=== PATIENT | female | born 1995 | race Caucasian/White ===

== ENCOUNTER 2017-07-25 15:24 | Emergency (ER) | payer OTHER ==
[2017-07-25 15:56] VITALS: BP 111/70
--- NOTE | 2017-07-25 16:45 | XRAY Report ---
EXAM: LEFT ANKLE RADIOGRAPHY EXAM DATE: 07/25/2017 04:14 PM. CLINICAL HISTORY: Injury. Medial pain after object struck ankle. COMPARISON: None. TECHNIQUE: 3 views. FINDINGS: Bones: Normal. No fractures or bone lesions. Joints: Normal. No effusion. No subluxations. The ankle mortise is normally aligned. Soft Tissues: Normal. No soft tissue swelling. IMPRESSION: Normal ankle radiography. [facility] Referring Provider Line: [phone] SITE ID: [id number]
--- NOTE | 2017-07-25 17:47 | ED Physician Documentation ---
PD HPI LOWER EXT INJURY - Stated complaint Stated Complaint: L ANKLE INJ - Chief complaint Chief Complaint: Ext Problem - History obtained from History obtained from: Patient - History of Present Illness PD HPI LOW EXT INJURY LOCATION: Left, Ankle, Foot Type of injury: Blunt / blow (she had object strike her foot/ankle with pain locally.) Where injury occurred: Work Timing - onset: Today Timing - duration: Hours Timing - details: Abrupt onset, Still present Worsened by: Moving, Palpating Associated symptoms: Swelling. No: Weakness, Numbness Similar symptoms before: Has not had sx before Recently seen: Not recently seen [place] but referred to ED.) Review of Systems Constitutional: denies: Fever, Chills Nose: denies: Rhinorrhea / runny nose Throat: denies: Sore throat Respiratory: denies: Cough GI: denies: Vomiting Skin: denies: Abrasion (s), Laceration (s) Neurologic: denies: Focal weakness, Numbness PD PAST MEDICAL HISTORY - Past Medical History Past Medical History: Yes Endocrine/Autoimmune: HyPERthyroidism - Past Surgical History Past Surgical History: No - Allergies Allergies/Adverse Reactions: Allergies Allergy/AdvReac Type Severity Reaction Status Date / Time No Known Drug Allergies Allergy Verified 07/25/17 15:56 - Social History Does the pt smoke?: No Smoking Status: Never smoker Does the pt drink ETOH?: Yes Does the pt have substance abuse?: No PD ED PE NORMAL - Vitals Vital signs reviewed: Yes - General General: Alert and oriented X 3, No acute distress, Well developed/nourished - Derm Derm: Normal color, Warm and dry - Extremities Extremities: Other (slightly limping gait on left. Tender proximal foot, dorsally and to medial ankle, without effusion. No obvious deformity. ) - Neuro Neuro: No motor deficit, No sensory deficit Results - Vitals Vitals: Oxygen O2 Source Room air - Rads (name of study) ankle Radiology: Prelim report reviewed (no fracture), EMP read contemporaneously PD MEDICAL DECISION MAKING - ED course Complexity details: reviewed results, considered differential, d/w patient Departure - Departure Disposition: 01 Home, Self Care Clinical Impression: Ankle contusion Qualifiers: Encounter type: initial encounter Laterality: left Qualified Code(s): S90.02XA - Contusion of left ankle, initial encounter Condition: Stable Record reviewed to determine appropriate education?: Yes Instructions: ED Contusion Foot Follow-Up: WILLY ESPARZA [Primary Care Provider] - Comments: Tylenol or ibuprofen if needed for pains. Colton wrap for swelling. Ice and elevate the ankle often if needed for swelling. No fractures are seen on the x- ray. He will be sore to be on it but no harm done so activity as desired. I wrote to a work note with no restrictions at your request and that seems reasonable. Forms: Activity restrictions Discharge Date/Time: 07/25/17 18:14
== END 2017-07-25 18:14 | disposition home or self-care (01) ==
LOC: ED 15:24
DX: S90.02XA Contusion of left ankle, initial encounter (principal); W22.8XXA Striking against or struck by other objects, initial encounter; Y99.0 Civilian activity done for income or pay; E05.90 Thyrotoxicosis, unspecified without thyrotoxic crisis or storm
CPT/HCPCS: 99283

== ENCOUNTER 2017-11-09 03:34 | Emergency (ER) | payer OTHER ==
[2017-11-09 03:42] VITALS: BP 135/76
[2017-11-09] MEDS ORDERED: MAG HYDROX/AL HYDROX/SIMETH 30 ML UDC PO STA (03:56)
[2017-11-09] MEDS ORDERED: LIDOCAINE VISCOUS 2% 15 ML UDC MM STA (03:56)
[2017-11-09] MEDS ORDERED: ONDANSETRON ODT 4 MG TABLET TL STA (03:56)
[2017-11-09 03:59] LABS: BILIRUBIN,URINE NEGATIVE (NEGATIVE); GLUCOSE, URINE (UA) NEGATIVE (NEGATIVE); KETONES,URINE (UA) NEGATIVE (NEGATIVE); LEUKOCYTE ESTERASE, URINE NEGATIVE (NEGATIVE); NITRITE,URINE NEGATIVE (NEGATIVE); OCCULT BLOOD,URINE NEGATIVE (NEGATIVE); PROTEIN,URINE NEGATIVE (NEGATIVE); UROBILINOGEN,URINE 0.2 (NORMAL) E.U./dL (NORMAL)
[2017-11-09 04:02] LABS: CLARITY,URINE CLEAR (CLEAR); HCG UR QUAL NEGATIVE
--- NOTE | 2017-11-09 04:10 | ED Physician Documentation ---
PD HPI NVD - Stated complaint Stated Complaint: ABDOMINAL PAIN; THROAT BURNING - Chief complaint Chief Complaint: Abd Pain - History obtained from History obtained from: Patient, Family - History of Present Illness Timing - onset: Today Timing - details: Abrupt onset, Still present Associated symptoms: No: Abdominal pain Contributing factors: Bad food, Alcohol use Similar symptoms before: Work up / diagnostics Recently seen: Not recently seen - Additonal information Additional information: Patient is a 21 year old female with a history of GERD who is presenting to the emergency department for epigastric pain. patient states that when she went to bed she had epigstric pain and felt like she had to burp. she states when she woke up the pain persisted and felt like her throat was burning and closing. patient got worried so she had her boyfriend take her in for evaluation. Upon initial evaluation in the emergency department patient was well appearing and in no acute distress. Review of Systems Ten Systems: 10 systems reviewed and negative GI: reports: Abdominal Pain, Nausea, Vomiting PD PAST MEDICAL HISTORY - Past Medical History Past Medical History: Yes Endocrine/Autoimmune: HyPERthyroidism GI: GERD - Past Surgical History Past Surgical History: No - Present Medications Home Medications: Ambulatory Orders Medication Instructions Recorded Confirmed Levothyroxine Sodium [Synthroid] 1 tab PO DAILY 11/09/17 11/09/17 Lidocaine Viscous 2% [Xylocaine 5 ml MM Q4H #1 bottle 11/09/17 Viscous 2%] Ondansetron Odt [Zofran] 4 mg TL Q6H PRN #14 tablet 11/09/17 - Allergies Allergies/Adverse Reactions: Allergies Allergy/AdvReac Type Severity Reaction Status Date / Time No Known Drug Allergies Allergy Verified 11/09/17 03:42 - Social History Does the pt smoke?: No Smoking Status: Never smoker Does the pt drink ETOH?: Yes Does the pt have substance abuse?: No - Immunizations Immunizations are current?: Yes - POLST Patient has POLST: No PD ED PE NORMAL - Vitals Vital signs reviewed: Yes - General General: Alert and oriented X 3, No acute distress - HEENT HEENT: Atraumatic, PERRL - Cardiac Cardiac: RRR - Respiratory Respiratory: No respiratory distress - Abdomen Abdomen: Non tender, Non distended - Derm Derm: Normal color, No rash - Extremities Extremities: No deformity - Neuro Neuro: Alert and oriented X 3 Eye Opening: Spontaneous - Psych Psych: Normal mood Results - Vitals Vitals: Vital Signs - 24 hr 11/09/17 03:39 Temperature 36.0 C L Heart Rate 73 Respiratory 18 Rate Blood Pressure 135/76 H O2 Saturation 99 Oxygen O2 Source Room air - Labs Labs: Laboratory Tests 11/09/17 03:54 Urine Color YELLOW Urine Clarity CLEAR Urine pH 6.0 Ur Specific [place] <=1.005 Urine Protein NEGATIVE Urine Glucose (UA) NEGATIVE Urine Ketones NEGATIVE Urine Occult Blood NEGATIVE Urine Nitrite NEGATIVE Urine Bilirubin NEGATIVE Urine Urobilinogen 0.2 (NORMAL) Ur Leukocyte Esterase NEGATIVE Ur Microscopic Review NOT INDICATED Urine Culture Comments NOT INDICATED Urine HCG, Qual NEGATIVE PD MEDICAL DECISION MAKING - ED course Complexity details: reviewed old records, reviewed results, re-evaluated patient , considered differential, d/w patient, d/w family ED course: Patient was seen and examined at bedside. Patient was well appearing. Patient was treated with zofran, pepcid, maalox and viscous lidocaine. Patient's pain resolved. Upon discharge patient was asymptomatic and stable for outpatient follow up. Departure - Departure Disposition: 01 Home, Self Care Clinical Impression: Gastroesophageal reflux disease Condition: Good Instructions: ED GERD Follow-Up: WILLY ESPARZA [Primary Care Provider] - Prescriptions: Lidocaine Viscous 2% [Xylocaine Viscous 2%] 5 ml MM Q4H #1 bottle Ondansetron Odt [Zofran] 4 mg TL Q6H PRN #14 tablet PRN Reason: Nausea / Vomiting Comments: Your symptoms today are being caused by acid reflux. The most important thing is dietary changes, including decreasing your acid intake (coffee, alcohol, juices), decreasing spicy foods, eating smaller meals, and not lying down right after eating. You can take zofran as needed for nausea and maalox or tums as needed for pain. You should follow up with your doctor if your symptoms persist. You may return to the emergency department at any time for new, worsening or uncontrollable symptoms.
== END 2017-11-09 04:30 | disposition home or self-care (01) ==
LOC: ED 03:34
DX: K21.9 Gastro-esophageal reflux disease without esophagitis (principal); E03.9 Hypothyroidism, unspecified
CPT/HCPCS: 81003; 81025; 99283; A9270; Q0162; 81001; 87086

== ENCOUNTER 2019-08-07 08:02 | Emergency (ER) | payer OTHER ==
--- NOTE | 2019-08-07 08:36 | ED Physician Documentation ---
PD HPI BACK PAIN - Stated complaint Stated Complaint: LOW BACK PX,NAUSEA - Chief complaint Chief Complaint: Back Pain - History obtained from History obtained from: Patient - History of Present Illness Timing - onset: Today Timing - details: Abrupt onset Pain level now: 4 Location: Upper, Right Quality: Pain Associated symptoms: No: Fever, Unable to urinate, Hematuria Recently seen: Not recently seen - Additional information Additional information: This is a 23-year-old woman who woke up this morning with pain in her right back and she was very nauseous she ended up vomiting. She was feeling little short of breath. After she vomited the pain kind of dissipated but still present about a 3-4 out of 10. [place] like a contraction she had another episode last night around 8 PM. She did eaten chicken tenders and fries for dinner and said snack of popcorn. She also had a similar pain 3 days ago that lasted only maybe 1 to 2 minutes. She never took any medication for the pain. She was having a little bit of back pain last night as well and related that to her scoliosis. She did not have any Aleve in the house this morning to take her she would have taken some. She denies any fever, cough although she had a upper respiratory type symptoms in June that she was taking DayQuil for and still has some minimal congestion. She denies any hematuria, or history of kidney stone. She still has her gallbladder. Review of Systems Constitutional: denies: Fever Ears: denies: Ear pain Nose: reports: Congestion Throat: denies: Sore throat Cardiac: denies: Chest pain / pressure Respiratory: reports: Dyspnea. denies: Cough GI: reports: Nausea, Vomiting. denies: Abdominal Pain : denies: Dysuria, Frequency, Incontinent, Hematuria Skin: denies: Rash Musculoskeletal: reports: Back pain Endocrine: reports: Other (She is not diabetic) PD PAST MEDICAL HISTORY - Past Medical History Endocrine/Autoimmune: HyPERthyroidism GI: GERD - Past Surgical History Past Surgical History: No - Present Medications Home Medications: Ambulatory Orders Medication Instructions Recorded Confirmed Levothyroxine Sodium [Synthroid] 50 mcg PO DAILY 11/09/17 08/07/19 Sulfamethox/Trimeth 800/160 1 each PO BID #14 tablet 08/07/19 [Bactrim Ds 800/160] - Allergies Allergies/Adverse Reactions: Allergies Allergy/AdvReac Type Severity Reaction Status Date / Time No Known Drug Allergies Allergy Verified 11/09/17 03:42 - Social History Does the pt smoke?: No Smoking Status: Never smoker Does the pt drink ETOH?: Yes Does the pt have substance abuse?: No - Immunizations Immunizations are current?: Yes - POLST Patient has POLST: No PD ED PE NORMAL - Vitals Vital signs reviewed: Yes - General General: Alert and oriented X 3, No acute distress, Well developed/nourished - HEENT HEENT: Atraumatic, PERRL, Moist mucous membranes - Neck Neck: Supple, no meningeal sign, No adenopathy - Cardiac Cardiac: RRR, No murmur, Strong equal pulses - Respiratory Respiratory: No respiratory distress, Clear bilaterally - Abdomen Abdomen: Normal bowel sounds, Soft, Non tender, Non distended, No organomegaly (No pain in the right upper quadrant) - Back Back: No: No CVA TTP (There is some mild right costovertebral angle tenderness.) - Derm Derm: Normal color, Warm and dry. 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, No motor deficit, No sensory deficit, Normal speech - Psych Psych: Normal mood, Normal affect Results - Vitals Vitals: Vital Signs - 24 hr 08/07/19 08/07/19 08:14 11:37 Temperature 37 C 36.8 C Heart Rate 88 73 Respiratory 18 18 Rate Blood Pressure 126/81 H 121/79 O2 Saturation 100 100 Oxygen O2 Source Room air - Labs Labs: Laboratory Tests 08/07/19 08/07/19 08/07/19 09:06 09:06 11:20 WBC 8.1 RBC 4.47 Hgb 11.6 L Hct 37.8 MCV 84.6 MCH 26.0 L MCHC 30.7 L RDW 14.4 Plt Count 223 MPV 11.0 H Neut # (Auto) 5.5 Lymph # (Auto) 1.6 [place] # (Auto) 0.7 Eos # (Auto) 0.2 Baso # (Auto) 0.0 Absolute Nucleated RBC 0.00 Nucleated RBC % 0.0 Sodium 134 L Potassium 3.9 Chloride 100 L Carbon Dioxide 26 Anion Gap 8.0 BUN 14 Creatinine 0.7 Estimated GFR (MDRD) 102 Glucose 113 H Calcium 8.7 Total Bilirubin 0.5 AST 13 ALT 14 Alkaline Phosphatase 53 Total Protein 7.6 Albumin 3.9 Globulin 3.7 Albumin/Globulin Ratio 1.1 Lipase 34 Urine Color Urine Clarity Urine pH Ur Specific [place] >=1.030 H Urine Protein Urine Glucose (UA) Urine Ketones Urine Occult Blood Urine Nitrite Urine Bilirubin Urine Urobilinogen Ur Leukocyte Esterase Urine RBC Urine WBC Ur Squamous Epith Cells Urine Bacteria Ur Microscopic Review Urine Culture Comments Urine HCG, Qual NEGATIVE 08/07/19 11:20 WBC RBC Hgb Hct MCV MCH MCHC RDW Plt Count MPV Neut # (Auto) Lymph # (Auto) [place] # (Auto) Eos # (Auto) Baso # (Auto) Absolute Nucleated RBC Nucleated RBC % Sodium Potassium Chloride Carbon Dioxide Anion Gap BUN Creatinine Estimated GFR (MDRD) Glucose Calcium Total Bilirubin AST ALT Alkaline Phosphatase Total Protein Albumin Globulin Albumin/Globulin Ratio Lipase Urine Color YELLOW Urine Clarity SL. CLOUDY Urine pH 6.0 Ur Specific [place] >=1.030 H Urine Protein NEGATIVE Urine Glucose (UA) NEGATIVE Urine Ketones NEGATIVE Urine Occult Blood NEGATIVE Urine Nitrite NEGATIVE Urine Bilirubin NEGATIVE Urine Urobilinogen 0.2 (NORMAL) Ur Leukocyte Esterase SMALL H Urine RBC None Seen Urine WBC 6-10 H Ur Squamous Epith Cells MANY Squamous H Urine Bacteria Few Ur Microscopic Review INDICATED Urine Culture Comments NOT INDICATED Urine HCG, Qual PD MEDICAL DECISION MAKING - ED course Complexity details: reviewed results, re-evaluated patient, d/w patient, d/w family ED course: IV was started the patient was given a liter of saline and 30 of Toradol IV. S he does have some white blood cells and bacteria on her urinalysis although there are a lot of squamous epithelial cells a culture was not obtained. There is no blood to suggest a kidney stone. Her liver enzymes are normal. Lipase is normal white blood cell counts normal. The patient was feeling completely better after the Toradol. She was given Bactrim tablet orally here and will be placed on Bactrim 1 tablet twice daily for 7 days. 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 We talked about the fact that this pain could be consistent with her gallbladder and will follow-up with her primary care provider if she has recurrent symptoms. Departure - Departure Disposition: 01 Home, Self Care Clinical Impression: Back pain Qualifiers: Back pain location: back pain in unspecified location Chronicity: acute Back pain laterality: right Qualified Code(s): M54.9 - Dorsalgia, unspecified UTI (urinary tract infection) Qualifiers: Urinary tract infection type: site unspecified Hematuria presence: without hematuria Qualified Code(s): N39.0 - Urinary tract infection, site not specified Condition: Good Instructions: ED UTI Cystitis Female, ED Flank Pain Uncertain Cause Follow-Up: Ted Murcia MD [Primary Care Provider] - Prescriptions: Sulfamethox/Trimeth 800/160 [Bactrim Ds 800/160] 1 each PO BID #14 tablet Comments: Drink lots of water. Take the antibiotic twice a day as prescribed. You can use your Aleve for back pain. Follow-up for recheck with your primary care provider after finishing the antibiotics that he can have the urine retested. Follow-up sooner if you have persistent pain particularly if associated with vomiting, fever, not urinating or other problems arise.
[2019-08-07] MEDS ORDERED: SODIUM CHLORIDE 0.9% 1,000 ML IV ONE (09:02)
[2019-08-07] MEDS ORDERED: KETOROLAC 30 MG/ML VIAL IVP STA (09:02)
[2019-08-07 09:18] LABS: BASOPHILS % (AUTO) 0.1 %; EOSINOPHILS # (AUTO) 0.2 10^3/uL (0.0-0.7); EOSINOPHILS % (AUTO) 2.9 %; HGB - HEMOGLOBIN 11.6 g/dL (12.0-16.0); LYMPHOCYTES # (AUTO) 1.6 10^3/uL (1.5-3.5); LYMPHOCYTES % (AUTO) 19.5 %; MEAN CORPUSCULAR HGB CONC 30.7 g/dL (32.0-36.0); MEAN CORPUSCULAR VOLUME 84.6 fL (81.0-99.0); MONOCYTES # (AUTO) 0.7 10^3/uL (0.0-1.0); MONOCYTES % (AUTO) 9.2 %; NEUTROPHILS # (AUTO) 5.5 10^3/uL (1.5-6.6); NEUTROPHILS % (AUTO) 67.9 %; PLT - PLATELET COUNT 223 10^3/uL (130-450); RED BLOOD COUNT 4.47 10^6/uL (4.20-5.40); RED CELL DISTRIBUTION WIDTH 14.4 % (12.0-15.0); WHITE BLOOD COUNT 8.1 x10^3/uL (4.8-10.8)
[2019-08-07 09:37] LABS: ALBUMIN 3.9 g/dL (3.2-5.5); ALBUMIN/GLOBULIN RATIO 1.1 (1.0-2.2); BILIRUBIN,TOTAL 0.5 mg/dL (0.2-1.0); CALCIUM 8.7 mg/dL (8.5-10.3); CREATININE 0.7 mg/dL (0.4-1.0); TOTAL PROTEIN 7.6 g/dL (6.7-8.2)
[2019-08-07 11:36] LABS: BILIRUBIN,URINE NEGATIVE (NEGATIVE); GLUCOSE, URINE (UA) NEGATIVE (NEGATIVE); KETONES,URINE (UA) NEGATIVE (NEGATIVE); LEUKOCYTE ESTERASE, URINE SMALL (NEGATIVE); NITRITE,URINE NEGATIVE (NEGATIVE); OCCULT BLOOD,URINE NEGATIVE (NEGATIVE); PROTEIN,URINE NEGATIVE (NEGATIVE); UROBILINOGEN,URINE 0.2 (NORMAL) E.U./dL (NORMAL)
[2019-08-07 11:38] VITALS: BP 121/79
[2019-08-07 11:39] LABS: CLARITY,URINE SL. CLOUDY (CLEAR); HCG UR QUAL NEGATIVE
[2019-08-07 11:44] LABS: BACTERIA,URINE Few /HPF (None Seen); RBC,URINE None Seen /HPF (0-5); SQUAMOUS EPITHELIAL CELL,UR MANY Squamous (<= Few)
[2019-08-07] MEDS ORDERED: SULFAMETH/TRIMETH DS 800/160 MG TABLET PO STA (11:50)
== END 2019-08-07 12:45 | disposition home or self-care (01) ==
LOC: ED 08:02
DX: M54.5 Low back pain (principal); N39.0 Urinary tract infection, site not specified; R11.2 Nausea with vomiting, unspecified
CPT/HCPCS: 36415; 80053; 81001; 81025; 83690; 85025; 96361; 96374; 99283; 99284; A9270; 81003; 87086

== ENCOUNTER 2020-01-08 14:34 | Outpatient (CLI) | payer OTHER | END 2020-01-08 14:35 | disposition critical access hospital (66) | LOC: EMS 14:34 | PROVIDERS: ATTEND Surgery | DX: M54.9 Dorsalgia, unspecified (principal); R06.00 Dyspnea, unspecified | CPT/HCPCS: A0425; A0429 ==

== ENCOUNTER 2020-01-08 14:56 | Emergency (ER) | payer OTHER ==
[2020-01-08] MEDS ORDERED: KETOROLAC 30 MG/ML VIAL IVP STA (15:21)
--- NOTE | 2020-01-08 15:24 | ED Physician Documentation ---
History of Present Illness - Stated complaint Stated Complaint: BACK PAIN - Chief complaint Chief Complaint: Back Pain - History obtained from History obtained from: Patient - History of Present Illness Timing: Prior to arrival, How many hours ago (10) Pain level max: 10 Pain level now: 4 - Additonal information Additional information: 24-year-old female presents to the emergency department with chief complaint of acute right CVA pain. Woke her up from sleep. Patient reports the pain as sharp nonradiating. Pain is so severe it causes her to have sweats and nausea. She denies possibility of . She has had similar in the past with a UTI but at present denies any dysuria hematuria urgency or frequency. Patient denies vaginal discharge but is currently on her menses. Review of Systems Constitutional: denies: Fever, Chills Cardiac: denies: Chest pain / pressure, Palpitations Respiratory: denies: Dyspnea GI: reports: Nausea, Other (CVA tenderness). denies: Abdominal Pain, Abdominal Swelling, Vomiting, Constipation, Diarrhea : denies: Dysuria, Frequency Musculoskeletal: reports: Back pain. 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 : None HEENT: None Psych: None Musculoskeletal: Chronic back pain Derm: None - Past Surgical History Past Surgical History: No - Present Medications Home Medications: Ambulatory Orders Medication Instructions Recorded Confirmed Levothyroxine Sodium [Synthroid] 50 mcg PO DAILY 11/09/17 08/07/19 Sulfamethox/Trimeth 800/160 1 each PO BID #14 tablet 08/07/19 [Bactrim Ds 800/160] - Allergies Allergies/Adverse Reactions: Allergies Allergy/AdvReac Type Severity Reaction Status Date / Time No Known Drug Allergies Allergy Verified 11/09/17 03:42 - Social History Does the pt smoke?: No Smoking Status: Never smoker Does the pt drink ETOH?: Yes Does the pt have substance abuse?: No - Immunizations Immunizations are current?: Yes - POLST Patient has POLST: No PD ED PE NORMAL - General General: Alert and oriented X 3, No acute distress, Other - HEENT HEENT: Atraumatic, PERRL, EOMI - Neck Neck: Supple, no meningeal sign, No adenopathy - Cardiac Cardiac: RRR, No murmur - Respiratory Respiratory: No respiratory distress, Clear bilaterally - Abdomen Abdomen: Normal bowel sounds, Non tender, Non distended, Other (Mild tenderness elicited over the right CVA angle. No flank or suprapubic pain elicited.) - Back Back: Other (+ right CVA tenderness) - Derm Derm: Normal color, Warm and dry - Extremities Extremities: No deformity, No tenderness to palpate Results - Vitals Vitals: Vital Signs - 24 hr 01/08/20 15:02 Temperature 36.8 C Heart Rate 84 Respiratory 20 Rate Blood Pressure 124/77 O2 Saturation 100 Oxygen O2 Source Room air - Labs Labs: Laboratory Tests 01/08/20 01/08/20 15:55 17:04 Sodium 136 Potassium 4.0 Chloride 99 L Carbon Dioxide 28 Anion Gap 9.0 BUN 18 Creatinine 0.8 Estimated GFR (MDRD) 87 L Glucose 114 H Calcium 9.6 Total Bilirubin 0.5 AST 184 H ALT 106 H Alkaline Phosphatase 89 Total Protein 8.1 Albumin 4.4 Globulin 3.7 Albumin/Globulin Ratio 1.2 Lipase 40 Urine Color YELLOW Urine Clarity CLEAR Urine pH 7.0 Ur Specific [place] 1.020 Urine Protein NEGATIVE Urine Glucose (UA) NEGATIVE Urine Ketones NEGATIVE Urine Occult Blood SMALL H Urine Nitrite NEGATIVE Urine Bilirubin NEGATIVE Urine Urobilinogen 0.2 (NORMAL) Ur Leukocyte Esterase NEGATIVE Urine RBC 6-10 H Urine WBC 0-3 Ur Squamous Epith Cells RARE Squamous Urine Bacteria Rare Ur Microscopic Review INDICATED Urine Culture Comments NOT INDICATED Urine HCG, Qual NEGATIVE - Rads (name of study) CT abd w/o Radiology: Final report received (No CT evidence of obstructive uropathy or urinary calcification small cholelithiasis dependent near the neck. Normal appendix.) PD MEDICAL DECISION MAKING - ED course Complexity details: reviewed results, re-evaluated patient, d/w patient ED course: [id number] female presented the emergency department with acute onset right- sided abdominal pain with CVA tenderness. Differential diagnosis includes UTI, pyelo, Kirk, acute appendectomy, obstructive uropathy. - Patient's urine was not consistent with infection. There is blood noted however she is on her menses. CBC and serum chemistry essentially normal without worrisome findings. However given that this is a repeat recurrence of abdominal pain CT abdomen was completed. CT abdomen shows that she has a small nonobstructing gallstone. No secondary signs of cholecystitis. Normal appendix no obstructive uropathy. - Findings of a nonobstructing gallstone were discussed in detail with the patient. She will be referred to surgery for longer term follow-up emergent return precautions were discussed. At this time in the emergency department her pain is well controlled and she is tolerating p.o. without emesis. She feels ready for discharge. Departure - Departure Disposition: 01 Home, Self Care Clinical Impression: Abdominal pain Qualifiers: Abdominal location: right upper quadrant Qualified Code(s): R10.11 - Right upper quadrant pain Cholelithiasis Qualifiers: Cholelithiasis location: gallbladder Cholecystitis presence: without cholecystitis Biliary obstruction: without biliary obstruction Qualified Code(s): K80.20 - Calculus of gallbladder without cholecystitis without obstruction Condition: Stable Instructions: Gallstones Follow-Up: Ted Santa MD [Provider Admit Priv/Credential] - Comments: I hope you feel better soon. Your labs are essentially normal. The CT scan shows that you have a small nonobstructing stone in your gallbladder. Over the next few weeks try and reduce your intake of fried fatty or greasy foods. Eat lots of fiber and vegetables. I would like you to call to follow-up with the surgical department to see if in the long-term your gallbladder would need to be removed. If you develop fevers have severe unrelenting pain or uncontrolled vomiting return to the emergency department.
[2020-01-08 16:01] LABS: BILIRUBIN,URINE NEGATIVE (NEGATIVE); GLUCOSE, URINE (UA) NEGATIVE (NEGATIVE); KETONES,URINE (UA) NEGATIVE (NEGATIVE); LEUKOCYTE ESTERASE, URINE NEGATIVE (NEGATIVE); NITRITE,URINE NEGATIVE (NEGATIVE); OCCULT BLOOD,URINE SMALL (NEGATIVE); PROTEIN,URINE NEGATIVE (NEGATIVE); UROBILINOGEN,URINE 0.2 (NORMAL) E.U./dL (NORMAL)
[2020-01-08 16:05] LABS: CLARITY,URINE CLEAR (CLEAR); HCG UR QUAL NEGATIVE
[2020-01-08 16:33] LABS: BACTERIA,URINE Rare /HPF (None Seen); SQUAMOUS EPITHELIAL CELL,UR RARE Squamous (<= Few)
--- NOTE | 2020-01-08 16:59 | XRAY Report ---
PROCEDURE: Chest 2 View X-Ray INDICATIONS: cough TECHNIQUE: 2 view(s) of the chest. COMPARISON: None. FINDINGS: Surgical changes and devices: None. Lungs and pleura: No pleural effusions or pneumothorax. Lungs are clear. Mediastinum: Mediastinal contours are normal. Heart size is normal. Bones and chest wall: No suspicious bony abnormalities. Soft tissues appear unremarkable. IMPRESSION: No acute cardiopulmonary pathology. Reviewed by: Eduardo Michel MD on 01/08/2020 4:58 PM PDT Approved by: Eduardo Michel MD on 01/08/2020 4:58 PM PDT Station ID: [id number]
[2020-01-08 17:23] LABS: ALBUMIN 4.4 g/dL (3.2-5.5); ALBUMIN/GLOBULIN RATIO 1.2 (1.0-2.2); BILIRUBIN,TOTAL 0.5 mg/dL (0.2-1.0); CALCIUM 9.6 mg/dL (8.5-10.3); CREATININE 0.8 mg/dL (0.4-1.0); TOTAL PROTEIN 8.1 g/dL (6.7-8.2)
[2020-01-08] MEDS ORDERED: HYDROmorphone 1 MG/ML CARPUJECT IM STA (18:25)
--- NOTE | 2020-01-08 18:35 | CT Report ---
PROCEDURE: ABDOMEN WO INDICATIONS: right flank pain/hematuria TECHNIQUE: Noncontrast 5 mm thick sections acquired from the diaphragms to the symphysis. 5 mm coronal and sagi ttal reformats were then performed. For radiation dose reduction, the following was used: automated exposure control, adjustment of mA and/or kV according to patient size. COMPARISON: None. FINDINGS: Image quality: Excellent. ABDOMEN: Lung bases: Lung bases are clear. Heart size is normal. Solid organs: Liver and spleen are normal in size. Gallbladder contains a tiny calcified stone depe ndently near the neck. Pancreas is normal in contours. No adrenal nodules. Kidneys are normal in size, without hydronephrosis or nephrolithiasis. No hydroureter or ureteral ca lcifications. Peritoneum and bowel: Normal appendix. Unenhanced bowel loops demonstrate normal wall thickness and caliber. No free fluid or air. Nodes and vessels: No retroperitoneal or mesenteric adenopathy by size criteria. A few minimally pro minent periaortic/retroperitoneal lymph nodes are present the level of the renal veins. Aorta and in ferior vena cava are normal in caliber. Miscellaneous: No ventral hernias. PELVIS: Genitourinary: Bladder wall thickness is normal. Normal uterus and ovaries. Miscellaneous: No inguinal hernias or adenopathy. Bones: No suspicious bony lesions. No vertebral body compression fractures. IMPRESSION: 1. No CT evidence of obstructive uropathy or urinary calcification. 2. Cholelithiasis. 3. Normal appendix. Reviewed by: Sharon Nix MD on 01/08/2020 6:34 PM PDT Approved by: Sharon Nix MD on 01/08/2020 6:34 PM PDT Station ID: [id number]
[2020-01-08] MEDS ORDERED: HYDROmorphone 2 MG/ML VIAL IM STA (18:48)
[2020-01-08 19:24] VITALS: BP 128/80
[2020-01-08] MEDS ORDERED: HYDROmorphone 1 MG/ML CARPUJECT IVP STA (19:25)
== END 2020-01-08 19:29 | disposition home or self-care (01) ==
LOC: EDUNIT# → ED 14:56
DX: K80.20 Calculus of gallbladder without cholecystitis without obstruction (principal)
CPT/HCPCS: 36415; 71046; 74150; 80053; 81001; 81025; 83690; 96374; 96375; 99284; J1170; 81003; 87086

== ENCOUNTER 2020-01-25 23:53 | Outpatient (CLI) | payer OTHER | END 2020-01-25 23:54 | disposition critical access hospital (66) | LOC: EMS 23:53 | PROVIDERS: ATTEND Surgery | DX: R10.11 Right upper quadrant pain (principal); R10.13 Epigastric pain | CPT/HCPCS: A0425; A0427 ==

== ENCOUNTER 2020-01-26 00:13 | Emergency (ER) | payer OTHER ==
--- NOTE | 2020-01-26 00:18 | ED Physician Documentation ---
History of Present Illness - Stated complaint Stated Complaint: RUQ PAIN - History obtained from History obtained from: Patient (Patient is a 24-year-old female who reports she has a history of cholelithiasis and is scheduled to have surgery as an outpatient. She reports she a large meal tonight and about hour later had right upper quadrant pain with nausea and vomiting. She denies any fevers or jaundice.) Review of Systems Constitutional: reports: Reviewed and negative Eyes: reports: Reviewed and negative Ears: reports: Reviewed and negative Nose: reports: Reviewed and negative Throat: reports: Reviewed and negative Cardiac: reports: Reviewed and negative Respiratory: reports: Reviewed and negative GI: reports: Abdominal Pain, Nausea, Vomiting : reports: Reviewed and negative Skin: reports: Reviewed and negative Musculoskeletal: reports: Reviewed and negative Neurologic: reports: Reviewed and negative Psychiatric: reports: Reviewed and negative Endocrine: reports: Reviewed and negative Immunocompromised: reports: Reviewed and negative PD PAST MEDICAL HISTORY - Past Medical History Cardiovascular: None Respiratory: None Endocrine/Autoimmune: HyPERthyroidism GI: GERD 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: None : None HEENT: None Psych: None Musculoskeletal: Chronic back pain Derm: None - Past Surgical History Past Surgical History: No - Present Medications Home Medications: Ambulatory Orders Medication Instructions Recorded Confirmed Levothyroxine Sodium [Synthroid] 50 mcg PO DAILY 11/09/17 08/07/19 Sulfamethox/Trimeth 800/160 1 each PO BID #14 tablet 08/07/19 [Bactrim Ds 800/160] Hydrocodone/Acetaminophen [[place] 1 each PO Q6HR PRN #7 tablet 01/26/20 5-325 Tablet] Ondansetron Odt [Zofran Odt] 4 mg TL Q6H PRN #10 tablet 01/26/20 - Allergies Allergies/Adverse Reactions: Allergies Allergy/AdvReac Type Severity Reaction Status Date / Time No Known Drug Allergies Allergy Verified 11/09/17 03:42 - Social History Does the pt smoke?: No Smoking Status: Never smoker Does the pt drink ETOH?: Yes Does the pt have substance abuse?: No - Immunizations Immunizations are current?: Yes - POLST Patient has POLST: No PD ED PE NORMAL - Vitals Vital signs reviewed: Yes - General General: Alert and oriented X 3, No acute distress - HEENT HEENT: PERRL, Moist mucous membranes - Neck Neck: Supple, no meningeal sign - Cardiac Cardiac: RRR, No murmur - Respiratory Respiratory: Clear bilaterally - Abdomen Abdomen: Normal bowel sounds, Soft, Non distended, No organomegaly, Other (No midline abdominal pulsatile mass diffusely tender.) - Back Back: No CVA TTP, No spinal TTP - Derm Derm: Normal color, Warm and dry, No rash - Extremities Extremities: No deformity, No tenderness to palpate, Normal ROM s pain, No edema, No calf tenderness / cord - Neuro Neuro: Alert and oriented X 3, assignment agent 2-12 intact, No motor deficit, No sensory deficit, Normal speech - Psych Psych: Normal mood, Normal affect Results - Vitals Vitals: Vital Signs - 24 hr 01/26/20 01/26/20 01/26/20 00:19 00:30 01:05 Temperature 36.8 C Heart Rate 79 72 76 Respiratory 18 17 20 Rate Blood Pressure 130/82 H 130/82 H 123/76 O2 Saturation 98 100 100 01/26/20 01:51 Temperature Heart Rate 74 Respiratory 17 Rate Blood Pressure 111/64 O2 Saturation 100 Oxygen O2 Source Room air - Labs Labs: Laboratory Tests 01/26/20 01/26/20 01/26/20 00:26 00:26 00:26 WBC 9.1 RBC 4.19 L Hgb 11.2 L Hct 36.0 L MCV 85.9 MCH 26.7 L MCHC 31.1 L RDW 13.3 Plt Count 201 MPV 10.8 Neut # (Auto) 7.0 H Lymph # (Auto) 1.1 L [place] # (Auto) 0.9 Eos # (Auto) 0.1 Baso # (Auto) 0.0 Absolute Nucleated RBC 0.00 Nucleated RBC % 0.0 PT 12.2 INR 1.1 APTT 30.1 Sodium 139 Potassium 3.4 L Chloride 102 Carbon Dioxide 26 Anion Gap 11.0 BUN 11 Creatinine 0.7 Estimated GFR (MDRD) 101 Glucose 105 H Lactic Acid Calcium 8.8 Total Bilirubin 0.8 Direct Bilirubin 0.2 AST 37 ALT 28 Alkaline Phosphatase 62 Total Protein 7.1 Albumin 4.0 Globulin 3.1 Lipase 33 Ethyl Alcohol < 5.0 01/26/20 00:26 WBC RBC Hgb Hct MCV MCH MCHC RDW Plt Count MPV Neut # (Auto) Lymph # (Auto) [place] # (Auto) Eos # (Auto) Baso # (Auto) Absolute Nucleated RBC Nucleated RBC % PT INR APTT Sodium Potassium Chloride Carbon Dioxide Anion Gap BUN Creatinine Estimated GFR (MDRD) Glucose Lactic Acid 0.9 Calcium Total Bilirubin Direct Bilirubin AST ALT Alkaline Phosphatase Total Protein Albumin Globulin Lipase Ethyl Alcohol PD MEDICAL DECISION MAKING - ED course Complexity details: reviewed results, re-evaluated patient (02:22 Improved. Patient has follow-up plans for outpatient cholecystectomy with general surgeon Dr. Santa.), considered differential (Cholelithiasis, cholecystitis, pancreatitis, Peptic ulcer disease), d/w patient Departure - Departure Disposition: 01 Home, Self Care Clinical Impression: Cholelithiasis Qualifiers: Cholelithiasis location: other site Biliary obstruction: without biliary obstruction Qualified Code(s): K80.80 - Other cholelithiasis without obstruction Instructions: ED Gallstone W Biliary Colic Follow-Up: Ted Santa MD [Provider Admit Priv/Credential] - 01/28/20 Prescriptions: Hydrocodone/Acetaminophen [[place] 5-325 Tablet] 1 each PO Q6HR PRN #7 tablet PRN Reason: Pain Ondansetron Odt [Zofran Odt] 4 mg TL Q6H PRN #10 tablet PRN Reason: Nausea / Vomiting Comments: Follow-up with your general surgeon as scheduled.
[2020-01-26] MEDS ORDERED: SODIUM CHLORIDE 0.9% 1,000 ML IV STA (00:20)
[2020-01-26 00:36] LABS: BASOPHILS % (AUTO) 0.3 %; EOSINOPHILS # (AUTO) 0.1 10^3/uL (0.0-0.7); EOSINOPHILS % (AUTO) 1.3 %; HGB - HEMOGLOBIN 11.2 g/dL (12.0-16.0); LYMPHOCYTES # (AUTO) 1.1 10^3/uL (1.5-3.5); LYMPHOCYTES % (AUTO) 11.7 %; MEAN CORPUSCULAR HEMOGLOBIN 26.7 pg (27.0-31.0); MEAN CORPUSCULAR HGB CONC 31.1 g/dL (32.0-36.0); MEAN CORPUSCULAR VOLUME 85.9 fL (81.0-99.0); MEAN PLATELET VOLUME 10.8 fL (7.9-10.8); MONOCYTES # (AUTO) 0.9 10^3/uL (0.0-1.0); MONOCYTES % (AUTO) 9.4 %; NEUTROPHILS % (AUTO) 76.9 %; PLT - PLATELET COUNT 201 10^3/uL (130-450); RED BLOOD COUNT 4.19 10^6/uL (4.20-5.40); RED CELL DISTRIBUTION WIDTH 13.3 % (12.0-15.0); WHITE BLOOD COUNT 9.1 x10^3/uL (4.8-10.8)
[2020-01-26 00:42] LABS: INR 1.1 (0.8-1.2); PT - PROTHROMBIN TIME 12.2 secs (9.9-12.6)
[2020-01-26 00:50] LABS: PARTIAL THROMBOPLASTIN TIME 30.1 secs (24.9-33.3)
[2020-01-26 00:52] LABS: ALKALINE PHOSPHATASE 62 IU/L (42-121); ALT ALANINE AMINOTRANSFERASE 28 IU/L (10-60); AST ASPARTATE AMINOTRANSFERASE 37 IU/L (10-42); BILIRUBIN,DIRECT 0.2 mg/dL (0.1-0.5); BILIRUBIN,TOTAL 0.8 mg/dL (0.2-1.0); BUN - BLOOD UREA NITROGEN 11 mg/dL (6-20); CALCIUM 8.8 mg/dL (8.5-10.3); CARBON DIOXIDE - CO2 26 mmol/L (21-32); CHLORIDE 102 mmol/L (101-111); CREATININE 0.7 mg/dL (0.4-1.0); GLUCOSE 105 mg/dL (70-100); LIPASE 33 U/L (22-51); SODIUM 139 mmol/L (135-145); TOTAL PROTEIN 7.1 g/dL (6.7-8.2)
[2020-01-26] MEDS ORDERED: ONDANSETRON 4 MG/2 ML VIAL IVP STA (01:03)
[2020-01-26] MEDS ORDERED: MORPHINE 2 MG/ML CARPUJECT IVP STA (01:03)
[2020-01-26 01:53] VITALS: BP 111/64
--- NOTE | 2020-01-26 09:11 | Ultrasound Report ---
PROCEDURE: Abdomen Limited INDICATIONS: RUQ PAIN TECHNIQUE: Real-time focused scanning was performed of the abdomen, with image documentation. COMPARISON: CT abdomen without contrast, 01/08/2020. FINDINGS: There are gallstones. Gallbladder wall measures 2.6 mm. No pericholecystic progression or sonographic Orellana sign. Liver demonstrates mildly increased echogenicity suggesting fatty infiltration. Pancreas is suboptima lly visualized due to overlying bowel gas. Common bile duct is prominent but within normal limits. Ri ght kidney is normal in size without hydronephrosis. IMPRESSION: 1. Cholelithiasis. No ultrasound findings to suggest acute cholecystitis. 2. Prominent common bile duct which is at the upper limits of normal. No discrepancy with the preliminary interpretation. Reviewed by: Rosi Alaniz MD on 01/26/2020 9:09 AM PDT Approved by: Rosi Alaniz MD on 01/26/2020 9:09 AM PDT Station ID: [id number]
== END 2020-01-26 02:40 | disposition home or self-care (01) ==
LOC: EDUNIT# → ED 00:13
DX: K80.20 Calculus of gallbladder without cholecystitis without obstruction (principal)
CPT/HCPCS: 36415; 76705; 80048; 80076; 80320; 83605; 83690; 85025; 85610; 85730; 96361; 96374; 99285

== ENCOUNTER 2020-02-15 12:37 | Outpatient (CLI) | payer OTHER | END 2020-02-15 12:38 | disposition home or self-care (01) | LOC: COV 12:37 | PROVIDERS: ATTEND Surgery | DX: Z01.812 Encounter for preprocedural laboratory examination (principal); K81.1 Chronic cholecystitis; Z11.59 Encounter for screening for other viral diseases ==

== ENCOUNTER 2020-02-19 07:16 | Day surgery (SDC) | payer OTHER ==
[2020-02-19] MEDS ORDERED: GLYCOPYRROLATE 1 MG/5 ML VIAL IVP ONE (07:17)
[2020-02-19] MEDS ORDERED: DEXAMETHASONE 4 MG/ML VIAL IVP ONE (07:17)
[2020-02-19] MEDS ORDERED: KETOROLAC 30 MG/ML VIAL IVP ONE (07:17)
[2020-02-19] MEDS ORDERED: PROPOFOL 200 MG/20 ML VIAL IVP ONE (07:17)
[2020-02-19] MEDS ORDERED: ROCURONIUM 50 MG/5 ML VIAL IVP ONE (07:17)
[2020-02-19] MEDS ORDERED: NEOSTIGMINE 1 MG/1 ML 10 ML MDV IVP ONE (07:17)
[2020-02-19] MEDS ORDERED: MIDAZOLAM 2 MG/2 ML VIAL IVP ONE (07:17)
[2020-02-19] MEDS ORDERED: LACTATED RINGERS 1,000 ML IV ONE ×2 (07:40→11:33)
[2020-02-19] MEDS ORDERED: CEFAZOLIN SODIUM IN 0.9 % NACL 2 GM/100 ML BAG IV ONE (08:01)
[2020-02-19] MEDS ORDERED: BUPIVACAINE 0.5% PF 30 ML VIAL ONE (08:05)
[2020-02-19] MEDS ORDERED: BUPIVACAINE 0.25% PF 30 ML VIAL ONE (08:06)
--- NOTE | 2020-02-19 08:22 | ANESTHESIA ---
Pre-Anesthesia VS, & Labs - Diagnosis chronic cholecystitis - Procedure laparoscopic cholecystectomy Vital Signs: Temp Pulse Resp BP Pulse Ox 36.7 C 72 12 99/66 98 02/19/20 07:42 02/19/20 07:42 02/19/20 07:42 02/19/20 07:42 02/19/20 07:42 Height 5 ft 4 in Weight (kg) 99.4 kg Body Mass Index 37.4 - NPO >8 hours - Is Patient ?: No - Lab Results Lab results reviewed: Yes Home Medications and Allergies Home Medications: Ambulatory Orders FLUoxetine [PROzac] 10 mg PO DAILY 02/05/20 Naproxen [Naprosyn] 500 mg PO BID PRN 02/05/20 Levothyroxine Sodium [Synthroid] 100 mcg PO DAILY 11/09/17 FLUoxetine [PROzac] 10 mg PO DAILY 02/05/20 Naproxen [Naprosyn] 500 mg PO BID PRN 02/05/20 Allergies/Adverse Reactions: Allergies Allergy/AdvReac Type Severity Reaction Status Date / Time adhesive Allergy Rash Verified 02/11/20 14:40 Anes History & Medical History - Anesthetic History Family history of Anesthesia Complications: Denies Family history of Malignant Hyperthermia: Denies - Medical History Cardiovascular: reports: None Pulmonary: reports: None Gastrointestinal: reports: GERD Urinary: reports: None Neuro: reports: None Musculoskeletal: reports: Chronic back pain Endocrine/Autoimmune: reports: HyPERthyroidism Blood Disorders: reports: None Skin: reports: None Smoking Status: Never smoker Exam General: Alert, Oriented x3, Cooperative, No acute distress Dental: Other (chipped teeth on front uppers) Mouth Openin Fingerbreadth Neck Mobility: Normal Mallampati classification: II Respiratory: Lungs clear, Normal breath sounds, No respiratory distress, No accessory muscle use Cardiovascular: Regular rate, Normal S1, Normal S2, No murmurs Plan Anesthesia Type: General, Transverse Abdominis Plane (TAP) Block (if needed) Consent for Procedure(s) Verified and Reviewed: Yes Code Status: Attempt Resuscitation ASA classification: 2-Mild systemic disease Is this case an emergency?: No
[2020-02-19 09:08] LABS: HCG,QUALITATIVE BLOOD NEGATIVE
[2020-02-19] MEDS ORDERED: BUPIVACAINE 0.25% PF 30 ML VIAL SUBQ ONE ×2 (09:20→10:19)
[2020-02-19] MEDS ORDERED: ePHEDrine 50 MG/ML VIAL IVP PRN (09:39)
[2020-02-19] MEDS ORDERED: ONDANSETRON 4 MG/2 ML VIAL IVP PRN ×2 (09:39→10:50)
[2020-02-19] MEDS ORDERED: MORPHINE 2 MG/ML CARPUJECT IVP PRN (09:39)
[2020-02-19] MEDS ORDERED: ATROPINE ABBOJECT 1 MG/10 ML SYRINGE IVP PRN (09:39)
[2020-02-19] MEDS ORDERED: HYDROmorphone 0.5 MG/0.5 ML SYRINGE IVP PRN (09:39)
[2020-02-19] MEDS ORDERED: fentaNYL 100 MCG/2 ML VIAL IVP PRN (09:39)
[2020-02-19] MEDS ORDERED: NALOXONE 0.4 MG/ML VIAL IVP PRN (09:39)
[2020-02-19] MEDS ORDERED: LACTATED RINGERS 1,000 ML IV SCH (10:00)
[2020-02-19] MEDS ORDERED: ACETAMINOPHEN 325 MG TABLET PO PRN (10:50)
[2020-02-19] MEDS ORDERED: IBUPROFEN 600 MG TABLET PO PRN (10:50)
[2020-02-19] MEDS ORDERED: HYDROcod/ACETAM 5/325 MG TABLET PO PRN (10:50)
[2020-02-19] MEDS ORDERED: HYDROcod/ACETAM 5/325 MG TABLET ONE (11:18)
[2020-02-19] MEDS ORDERED: ONDANSETRON 4 MG/2 ML VIAL ONE (11:30)
[2020-02-19 12:33] VITALS: BP 130/81
--- NOTE | 2020-02-19 15:15 | ANESTHESIA POST OP EVALUATION ---
Anesthesia Post Eval - Post Anesthesia Eval Vitals: Last Vital Signs Temp 36.6 C 02/19/20 12:32 Pulse 64 02/19/20 12:32 Resp 16 02/19/20 12:32 BP 130/81 H 02/19/20 12:32 Pulse Ox 100 02/19/20 12:32 CV Function Including HR & BP: positive: Stable Pain Control: positive: Satisfactory Nausea & Vomiting: positive: Negative Mental Status: positive: Baseline Respiratory Status: Airway Patent Hydration Status: Satisfactory Anesthesia Complications: positive: None
--- NOTE | 2020-02-19 17:49 | OPERATIVE REPORT ---
DATE OF SERVICE: 02/19/2020 Physician: Ted Santa MD DATE OF OPERATION 02/19/2020. PREOPERATIVE DIAGNOSIS Chronic cholecystitis and clinical history of choledocholithiasis. POSTOPERATIVE DIAGNOSIS Chronic cholecystitis and clinical history of choledocholithiasis. PROCEDURE PERFORMED Laparoscopic cholecystectomy. SURGEON: Ted Santa MD SENIOR STRUCTURAL ENGINEER: None. ANESTHESIA: General endotracheal anesthesia. Local anesthesia with Marcaine. COMPLICATIONS: None. SPECIMEN: Gallbladder. ESTIMATED BLOOD LOSS: Less than 25 mL. DRAINS: None. FINDINGS: A small stone in the cystic duct close to the gallbladder. The common bile duct was easily evident without dissection and was normal and without dilation. INDICATIONS FOR PROCEDURE: The patient is a healthy 24-year-old with classic chronic cholecystitis type symptoms. In addition, she has had dark urine and elevated LFTs in the past. Her urine is now normal color and more recent LFTs normal. She presents for laparoscopic cholecystectomy. Risks discussed, alternatives discussed, all questions answered and consent obtained. DESCRIPTION OF PROCEDURE: The patient was properly identified, brought to the operating room and placed in the supine position. General endotracheal anesthesia was induced. Sequential compression devices were placed. She was prepped and draped in a sterile fashion and given preoperative antibiotics. Local anesthetic was given to incision areas. An infraumbilical incision was made. Dissection proceeded down to the fascia. The fascia was incised ,lifted upwards, and the abdomen entered with the Veress needle. CO2 was insufflated to a pressure of 15. An 11 mm trocar was placed, followed by a 30-degree scope. There was no evidence of injury from Veress needle or trocar placement. Under direct vision, two 5 mm trocars were placed in the right upper quadrant and a 10 mm trocar was placed in the epigastrium. Gallbladder was retracted anterior. Lateral attachments were partially taken down further mobilizing the gallbladder more anterior. The infundibulum was released from its peritoneal type attachments. The infundibulum was then retracted right lateral and caudad. The cystic artery was densely scarred to the cystic duct. It was carefully . There was a small palpable stone in the cystic duct close to her gallbladder. The cystic duct was clipped at the gallbladder and x3 more proximal where The duct was normal in diameter. The cystic artery was clipped at the gallbladder, x2, slightly proximal, and both the cystic duct and cystic artery sharply divided. The gallbladder was mobilized off from the bed of the liver without spillage of bile or stone material. The gallbladder was placed in an EndoCatch bag and brought out through the epigastrium. Hemostasis was assured. Trocars were removed under direct vision and CO2 evacuated. Fascia at the epigastrium was closed with a [id number] 0 Vicryl. The fascia at the infraumbilical site closed with a running 0 Vicryl suture. Skin was closed with buried interrupted or running 4-0 Monocryl. Given her skin sensitivity, skin glue was used as a dressing. She tolerated the procedure well and was brought to recovery in good condition. TD: 02/19/2020 14:23 CELINE
== END 2020-02-19 07:17 | disposition home or self-care (01) ==
LOC: SDS 07:16
PROVIDERS: ATTEND Surgery
PROC: 0FT44ZZ Resection of Gallbladder, Percutaneous Endoscopic Approach (ICD-10-PCS; principal; 2020-02-19 08:30)
DX: K80.10 Calculus of gallbladder with chronic cholecystitis without obstruction (principal); K21.9 Gastro-esophageal reflux disease without esophagitis; E05.90 Thyrotoxicosis, unspecified without thyrotoxic crisis or storm
CPT/HCPCS: 47562; 84703; A9270; J0690; J7120; 81025